=== PATIENT | male | born 1960 | race Caucasian/White ===

== ENCOUNTER 2021-04-18 18:30 | Inpatient (IN) | payer OTHER ==
[~2021-04-18] VITALS: Ht 182.9 cm; Wt 112.9 kg
[2021-04-18] VITALS (7 sets, daily range): BP systolic 136–149; BP diastolic 75–91
[2021-04-18] MEDS ORDERED: METHYLPHENIDATE10 M2 PO (18:41)
[2021-04-18] MEDS ORDERED: ESCITALOPRAM OX20 MG PO (18:41)
[2021-04-18 19:07] LABS: ABSOLUTE NEUTROPHILS 9.1 thou/uL (1.4-8.2); BASOPHILS 1.4 % (0.0-2.0); EOSINOPHILS 1.1 % (0.0-3.0); HEMATOCRIT 44.7 % (42.0-52.0); HEMOGLOBIN 15.6 gm/dL (14.0-18.0); LYMPHOCYTES 30.4 % (24.0-44.0); MCH 30.2 pg (26.0-34.0); MCV 86.4 fL (80.0-100.0); MONOCYTES 8.7 % (1.0-8.0); PLATELET COUNT 404 thou/uL (150-400); POLYS 58.4 % (36.0-66.0); RBC 5.18 mil/uL (4.50-6.00); WBC 15.6 thou/uL (4.0-11.0)
[2021-04-18 19:17] LABS: CALCIUM 9.5 mg/dL (8.5-10.1); CREATININE 1.4 mg/dL (0.7-1.3); POTASSIUM 4.1 mmol/L (3.5-5.1)
[2021-04-18 19:21] LABS: APTT 23.6 Seconds (24.5-32.8); PROTIME 10.9 Seconds (10.5-12.1)
[2021-04-18 19:27] LABS: TOTAL BILIRUBIN 0.4 mg/dL (0.2-1.0); TOTAL PROTEIN 7.2 g/dL (6.4-8.2)
--- NOTE | 2021-04-18 21:11 | CATHLAB ---
[facility] [place] [address] INVASIVE PROCEDURE REPORT Name: DAHLIA HIGGINS Room #: 170-13 ADM IN M.R.#: [id number] Admission: 04/18/21 Attend Phys: Almita Gonzales MD Discharge: Date of : 64 Report #: [id number] THIS REPORT FOR: cc: Rohit Welch MD, John H. MD Lundgren, Craig H. MD [facility] ~ APPROVED REPORT Study performed: 04/18/2021 19:15:34 Patient Details Patient Status: ED Room #: The patient is a 60 year-old male Event Personnel Dalton Underwood Crm Developer, Mindi Harris, Analy Momin RTR Scrub Bharati Navarrete RN, Jenniffer Cadena bar tacker sewing machine Performed Art Access - R femoral artery* Left Heart Cath w/or w/o Coronaries 9734019 [facility] JETHRO Revasc AMI Total/Sub Single LAD C[address] w/wo Plasty Single RAMUS Inter 019169 Hemostasis w/ Mynx 19595 Initial Mod Sed Same Phys/QHP Gr5y 402026 94538 Mod Sed Same Phys/QHP Ea 798814 Indication Chest pain Procedure Narrative The patient was brought emergently to the Cardiac Catheterization Laboratory and was prepped and draped in a sterile manner. The Right Groin^ was infiltrated with 1% Lidocaine subcutaneous anesthesia. A PINNACLE 6FR Sheath #[id number] sheath was inserted into the RFA^. Coronary angiography was performed using coronary diagnostic catheters. The right coronary system was accessed and visualized with a JR4 catheter. The left coronary system was accessed and visualized with a JL4 catheter. The left ventricle was accessed and visualized with a ANGLE PIG catheter. Left ventriculogram was performed in 30 degree projection. There was no hematoma. Intraoperative Conscious Sedation Sedation start time: 1924 Case end Time: 2019 [facility] [place] [address] INVASIVE PROCEDURE REPORT Name: DAHLIA HIGGINS Room #: 170-13 [facility] IN .R.#: [id number] Admission: 04/18/21 Attend Phys: Almita Gonzales, Discharge: Date of : 64 Report #: [id number] Fentanyl 200 mcg Versed 2 mg Fluoro Time: 8.55 minutes Dose: DAP 98885.90 cGycm2 2495 mGy Contrast Type and Amount: Visipaque 285 ml Coronary Angiography The patient's coronary anatomy is right dominant. Diagnostic Cath Left Main Normal left main LAD Occluded proximal LAD with ATIF 0 flow Circumflex Relatively small nondominant circumflex comprised of a distally arising marginal branch, angiographically normal OM1 Distal OM1, normal Right Coronary Mild proximal and mid vessel ectasia and plaquing R PDA Normal posterior descending RPLV Normal posterior lateral branch Ramus Large ramus branch with 85% proximal stenosis Left Ventriculography The left ventricle is normal in size with abnormal contractility. The left ventricular ejection fraction is estimated to be 40-45%. Left ventricular wall motion abnormalities are present. There is no mitral insufficiency. Anteroapical hypokinesis IVUS Intravascular Ultrasound was performed on the Ramus branch vessel. Fractional Flow [place] was performed on the 85 vessel. A 3 Guide Catheter was used to engage the LAUNCHER 6FR EBU 3.5 #[id number] ostium. A Left main Interventional Guidewire was used. A Luge Wire .014 x 182CM #[id number] was used. IVUS Findings TREK RX 2.5 X 12 #[id number] Hemodynamics The aortic pressure is 150/88 mmHg with a mean of 124 mmHg. The left ventricular pressure is 146/36 mmHg with a mean of mmHg. The left ventricular end diastolic pressure is 36 mmHg. There was no gradient across the aortic valve upon pullback. PCI Technique Lesion Anticoagulation was achieved with Heparin, Integrilin. Patient was preloaded with Effient. Percutaneous coronary intervention was performed on the Proximal LAD. The lesion stenosis prior to [facility] [address] [place] [address] INVASIVE PROCEDURE REPORT Name: DAHLIA HIGGINS Room #: 170-13 [facility] IN M.R.#: [id number] Admission: 04/18/21 Attend Phys: Almita Gonzales, Discharge: Date of : 64 Report #: [id number] intervention was 100% with ATIF 0 flow. A LAUNCHER 6FR EBU 3.5 #[id number] Guide Catheter was used to engage the Left main ostium. A Luge Wire .014 x 182CM #[id number] Interventional Guidewire was used to cross the lesion. BALLOON DILATION A Balloon catheter TREK RX 2.5 X 12 #[id number] was inserted and inflated up to 12.00atm for 20seconds. Additional Inflation: 13.00atm for 25seconds. STENT DEPLOYMENT A stent XIENCE CHASITY RX 4.0 X 15 #[id number] was inserted and inflated up to rene for seconds. POST STENT DEPLOYMENT BALLOON DILATION A Balloon catheter Euphora NC RX 4.0 x 12 #[id number] was inserted and inflated up to 20.00atm for 17seconds. Additional Inflation: 22.00atm for 32seconds. Final angiography reveals 0 % stenosis with ATIF 3 flow. PCI Technique Lesion Percutaneous coronary intervention was performed on the Ramus branch. The lesion stenosis prior to intervention was 85% with ATIF 3 flow. A LAUNCHER 6FR EBU 3.5 #796544 Guide Catheter was used to engage the Left main ostium. A Luge Wire .014 x 182CM #866471 Interventional Guidewire was used to cross the lesion. BALLOON DILATION A Balloon catheter TREK RX 2.5 X 12 #907036 was inserted and inflated up to 18.00atm for 29seconds. STENT DEPLOYMENT A stent RESOLUTE DALILA RX 3.0 X 15 #[id number] was inserted and inflated up to 16.00atm for 23seconds. POST STENT DEPLOYMENT BALLOON DILATION A Balloon catheter TREK NC RX 3.0 X 12 #[id number] was inserted and inflated up to 22.00atm for 29seconds. Additional Inflation: 22.00atm for 27seconds. Final angiography reveals 0 % stenosis with ATIF 3 flow. Conclusion 1. Moderate left ventricular dysfunction. EF 40-45%. [facility] [address] [place] [address] INVASIVE PROCEDURE REPORT Name: DAHLIA HIGGINS Room #: 170-13 ADM IN M.R.#: [id number] Admission: 04/18/21 Attend Phys: Almita Gonzales, Discharge: Date of : 64 Report #: [id number] hypokinesis 2. Normal left main 3. Occlusion of the proximal LAD, stented with a 4.0 x 15 mm Xience stent, post-dilated to 4.2mm. ATIF-3 flow restored 4. 85% proximal ramus branch stenosis, stented with a 3.0 x 15 mm Resolute stent 5. Normal, small, nondominant circumflex 6. Mild proximal and mid vessel plaquing and ectasia in a dominant right coronary Recommendations Cardiac Rehabilitation Referral Aggressive Medical Therapy <ELECTRONICALLY SIGNED> By: Dalton Underwood MD, [facility] 04/18/212110 10 10 Dalton Underwood MD, FACC /INF
[2021-04-19] VITALS (9 sets, daily range): BP systolic 131–152; BP diastolic 75–95
[2021-04-19 03:33] LABS: HEMATOCRIT 42.2 % (42.0-52.0); HEMOGLOBIN 14.3 gm/dL (14.0-18.0); MCH 29.4 pg (26.0-34.0); MCHC 33.8 g/dL (28.0-37.0); MCV 87.1 fL (80.0-100.0); RBC 4.85 mil/uL (4.50-6.00); RDW 12.8 % (10.5-14.5)
--- NOTE | 2021-04-19 03:38 | NUR ---
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 Patient presented with chest pain and upon arrival, he was taken to cath lb for stent placement. [address], right groin site access. Denies pain. Admission assessment and documentation completed. Bedrest for 3 hours. No sign of distress through the night. Vital signs stable. Continue to monitor. No further needs at this time.
[2021-04-19 04:11] LABS: CHOLESTEROL 208 mg/dL (<200); HDL CHOLESTEROL 33 mg/dL (>40); LDL CHOLESTEROL 137 mg/dL (<100); TC:HDL 6.3 Ratio (Not establshd); TRIGLYCERIDE 192 mg/dL (<150); VLDL 38 mg/dL (<40)
[2021-04-19 04:13] LABS: SERUM ASSESSMENT Clear
--- NOTE | 2021-04-19 12:58 | EKG ---
[place] [address] [facility] [employer] [place] [address] ELECTROCARDIOGRAM REPORT Name: DAHLIA HIGGINS Room #: 201- ADM IN M.R.#: [id number] Admission: 04/18/21 Attend Phys: Almita Gonzales MD Discharge: Date of : 64 Report #: [id number] [facility] ED Test Date: 2021-04-18 Test Time: 18:33:25 Pat Name: DAHLIA HIGGINS Department: Room: 201 Gender: M Employee Communications Manager: YASMEEN : 1960 Requested By: Dalton Underwood Order Number: [id number] MD: Dalton Underwood Measurements Intervals [place] Rate: 79 P: 55 UT: 142 QRS: 65 QRSD: 74 T: 11 QT: 369 QTc: 424 Interpretive Statements Sinus rhythm Anterolateral infarct, acute (LAD) Baseline wander in lead(s) II,III,aVF,V1,V2,V3,V4 No previous ECG available for comparison Electronically Signed On 04-19-2021 12:58:22 INSPECTOR SCREEN PRINTING by Dalton Underwood [email or web address] <ELECTRONICALLY SIGNED> By: Dalton Underwood MD, [facility] 04/19/21 1258 1833 1833 Dalton Underwood MD, [facility] /EPI
--- NOTE | 2021-04-19 13:03 | EKG ---
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: KELTON : 1960 Requested By: Dalton Underwood Order Number: [id number] MD: Dalton Underwood Measurements Intervals [place] Rate: 75 P: 24 WI: 141 QRS: 74 QRSD: 86 T: 48 QT: 387 QTc: 433 Interpretive Statements Sinus rhythm Probable anterolateral infarct, recent Compared to ECG 04/18/2021 18:33:[address] segment elevation is less prominent Electronically Signed On 04-19-2021 13:03:08 CUSTOMER LEADER by Dalton Underwood [email or web address] <ELECTRONICALLY SIGNED> By: Dalton Underwood MD, [facility] 04/19/21 1303 D: 01/947 7 Dalton Underwood MD, FACC /EPI
--- NOTE | 2021-04-19 19:30 | NUR ---
ASSUMED CARE OF PATIENT AT 0700. C/O NONCARDIAC CHEST PAIN, ALLEVIATED WITH HYDROCODONE X 1. SR ON MONITOR. DENIES ANY CARDIAC CP OR SOA. RT GROIN SITE CONTINUES TO BE FREE OF ANY SWELLING, DRAINAGE OR BRUISING. PATIENT'S AT BEDSIDE. PT RESTING COMFORTABLY IN BED WITH CALL LIGHT WITHIN REACH. WILL CONTINUE TO FOLLOW.
--- NOTE | 2021-04-20 03:26 | NUR ---
Assumed pt care at 1900. Pt is alert and oriented. No sign of distress noted in pt. Pt is stable. Right groin site intake. Pt continues to verbalize mild chest discomfort. Pain med administered. Assessment completed and documented. Scheduled meds administered to pt. CPAP on for sleep. No acute event during the night. Continue to monitor. No further needs at this time.
[2021-04-20 04:02] LABS: CALCIUM 8.5 mg/dL (8.5-10.1); CREATININE 1.3 mg/dL (0.7-1.3); POTASSIUM 4.5 mmol/L (3.5-5.1)
[2021-04-20 04:06] LABS: GLYCOHEMOGLOBIN (HGB A1C) 6.9 % (4.8-5.6)
[2021-04-20 04:16] VITALS: BP 141/82
[2021-04-20 07:10] VITALS: BP 125/64
[2021-04-20] MEDS ORDERED: CRESTOR40 MG PO (07:56)
[2021-04-20] MEDS ORDERED: EFFIENT10 MG PO (07:56)
[2021-04-20] MEDS ORDERED: LISINOPRIL20 MG PO (07:56)
[2021-04-20] MEDS ORDERED: ASPIRIN325 PO (07:56)
[2021-04-20] MEDS ORDERED: METOPROLOL SUCC50 MG PO (07:56)
[2021-04-20 10:44] VITALS: BP 125/64
[2021-04-20 11:05] VITALS: BP 125/75
--- NOTE | 2021-04-20 13:29 | NUR ---
CHART REVIEWED AND DISCUSSED WITH CARE TEAM. PT MEDICALLY STABLE TO [facility]. CM SPOKE TO NURSING STAFF REGARDING DISCHARGE MEDICATION EFFIENT. NO SAMPLES AVAILABLE FOR PT AND NO COUPONS AVAILABLE FOR PT. PT DOES NOT HAVE INSURANCE. NURSING STAFF SPOKE TO CARDIOLOGY PAPER [place] MACHINE OPERATOR WHO INIDICATED OFFICE DID NOT HAVE SAMPLES EITHER. WAS INFORMED PT WAS GETTING GENERIC AND AGREEABLE TO FILL MED AT [facility]. NO FURTHER CM INTERVENTIONS INDICATED AT THIS TIME.
--- NOTE | 2021-04-20 14:57 | 2DMMODE ---
[facility] [place] [address] 2 D/M-MODE ECHOCARDIOGRAM Name: DAHLIA HIGGINS Room #: 201-P [facility] IN M.R.#: [id number] Admission: 04/18/21 Attend Phys: Ricardo Winslow MD Discharge: 04/20/21 Date of : 64 Report #: [id number] THIS REPORT FOR: cc: Rohit Welch MD, John H. MD Lundgren, Craig H. MD [facility] ~ APPROVED REPORT Study performed: 04/20/2021 10:32:23 EXAM: Comprehensive 2D, Doppler, and color-flow Echocardiogram Patient Location: Bedside Room #: 201 Status: routine BSA: 2.34 HR: 71 bpm BP: 125/64 mmHg Rhythm: NSR Other Information Study Quality: Good Indications Chest Pain 2D Dimensions RVDd: 34.59 mm IVSd: 10.24 (7-11mm) LVOT Diam: 21.88 (18-24mm) LVDd: 43.96 mm PWd: 10.27 (7-11mm) Ascending Ao: 31.84 (22-36mm) LVDs: 31.95 (25-40mm) Left Atrium: 35.53 (27-40mm) Aortic Root: 31.96 mm IVC: 18.00 mm Volumes Left Atrial Volume (Systole) Single Plane 4CH: 38.02 mL Single Plane 2CH: 58.63 mL LA ESV Index: 23.00 mL/m2 Aortic Valve AoV Peak Tremaine.: 1.05 m/s AO Peak Gr.: 4.42 mmHg LVOT Max P.70 mmHg LVOT Max V: 0.96 m/s SAAD Vmax: 3.44 cm2 [facility] [address] [place] [address] 2 D/M-MODE ECHOCARDIOGRAM Name: DAHLIA HIGGINS Room #: 201-P [facility]#: [id number] Admission: 04/18/21 Attend Phys: Ricardo Winslow MD Discharge: 04/20/21 Date of : 64 Report #: [id number] AI Vmax: 3.79 m/s AI Bartholomew: 1.17 m/s2 AI PHT: 937.48 ms Mitral Valve E/A Ratio: 0.8 MV Decel. Time: 247.82 ms MV E Max Tremaine.: 0.54 m/s MV A Tremaine.: 0.67 m/s MV PHT: 68.10 ms IVRT: 147.64 ms Pulmonary Valve PV Peak Tremaine.: 0.90 m/s PV Peak Gr.: 3.27 mmHg Pulmonary Vein P Vein S: 0.43 m/s P Vein A: 0.28 m/s P Vein D: 0.32 m/s P Vein A Dur.: 96.9 msec P Vein S/D Ratio: 1.34 Left Ventricle The left ventricle is normal size. There is normal left ventricular wall thickness. Left ventricular ejection fraction is moderately decreased. LVEF is 40%. Mid to distal septal, anterior, and apical hypokinesis Mild diastolic dysfunction Right Ventricle The right ventricle is normal size. The right ventricular systolic function is normal. Atria The left atrium size is normal. The right atrium size is normal. Aortic Valve The aortic valve is normal in structure. Mild aortic regurgitation. There is no aortic valvular stenosis. Mitral Valve The mitral valve is normal in structure. Trace to mild mitral regurgitation. No evidence of mitral valve stenosis. Tricuspid Valve The tricuspid valve is normal in structure. There is no tricuspid valve regurgitation noted. [facility] [address] [place] [address] 2 D/M-MODE ECHOCARDIOGRAM Name: DAHLIA HIGGINS Room #: 201-P [facility] IN ..#: [id number] Admission: 04/18/21 Attend Phys: Ricardo Winslow MD Discharge: 04/20/21 Date of : 64 Report #: [id number] Pulmonic Valve The pulmonary valve is normal in structure. There is no pulmonic valvular regurgitation. Great Vessels The aortic root is normal in size. IVC is normal in size and collapses >50% with inspiration. Pericardium There is no pericardial effusion. <Conclusion> Left ventricular ejection fraction is moderately decreased. LVEF is 40%. Mid to distal septal, anterior, and apical hypokinesis Mild diastolic dysfunction The aortic valve is normal in structure. Mild aortic regurgitation, no stenosis. The mitral valve is normal in structure. Trace to mild mitral regurgitation. Pulmonary artery pressure could not be reliably ascertained There is no pericardial effusion. <ELECTRONICALLY SIGNED> By: Dalton Underwood MD, [facility] 04/20/21 145 145 145 Dalton Underwood MD, FACC /INF
--- NOTE | 2021-04-20 20:06 | NUR ---
PT IS AXOX4, PLEASANT; VSS, AFEBRILE, SR ON THE MONITOR WITH ST ELEVATION. PT D/C HOME WITH NO NEEDS. RX AND D/C FOLLOWUP APPT EDUCATION COMPLETED. PT AND COMMUNICATED UNDERSTANDING. PT D/C VIA PERSONAL VEHICLE WITH . NO CONCERNS AT THIS TIME
--- NOTE | 2021-04-21 08:00 | HC ---
[facility] [place] [address] CONSULTATION Name: DAHLIA HIGGINS Room #: 201-P [facility] IN M.R.#: [id number] Admission: 04/18/21 Attend Phys: Ricardo Winslow MD Discharge: 04/20/21 Date of : 64 Report #: [id number] THIS REPORT FOR: cc: Rohit Welch MD, John H. MD Lundgren, Craig H. MD [facility] ~ DATE OF SERVICE: 04/18/2021 REASON FOR CONSULTATION: Chest pain. HISTORY OF PRESENT ILLNESS: The patient is a 60-year-old with a fairly limited past medical history. About an hour ago, at 6:00 p.m., he developed midsternal chest pain with diaphoresis and shortness of breath. He presented to the Emergency Department at 1833 where an EKG demonstrated anterior injury pattern. A STEMI was called. He has ongoing pain despite treatment with aspirin, Plavix and heparin. No prior cardiac history. No heart failure symptoms including orthopnea or paroxysmal nocturnal dyspnea. He denies a history of palpitations, near syncope or syncope. ALLERGIES: No known drug allergies. MEDICATIONS: Include: Ritalin 30 mg daily, citalopram 20 mg daily. PAST MEDICAL HISTORY: His past history in medical records have been reviewed. No prior significant illnesses, hospitalizations, or surgeries. SOCIAL HISTORY: He is , nonsmoker, occasional drinker. 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 FAMILY HISTORY: Unremarkable for premature coronary disease. REVIEW OF SYSTEMS: All systems negative except as that noted above. PHYSICAL EXAMINATION: GENERAL: Reveals an anxious gentleman, who is diaphoretic, in moderate distress. VITAL SIGNS: Blood pressure is 140/80, heart rate is 76 and regular, 5 feet 11 inches tall, 249 pounds. LYMPHATICS: There are neither xanthelasma, subcutaneous xanthomata, oral mucosal or digital cyanosis or kyphoscoliosis present. CHEST: Clear to auscultation and percussion. CARDIAC: Regular rate and rhythm with normal S1, S2. Heart sounds are distant. ABDOMEN: Soft and nontender. [facility] [address] [place] [address] CONSULTATION Name: DAHLIA HIGGINS Room #: 201-P [facility] IN ..#: [id number] Admission: 04/18/21 Attend Phys: Ricardo Winslow MD Discharge: 04/20/21 Date of : 64 Report #: [id number] EXTREMITIES: Without cyanosis, clubbing or edema. Radial pulses are 2+. NEUROLOGIC: He is alert with a nonfocal exam. LABORATORY DATA: Electrolytes remain pending. Chest x-ray remains pending. EKG, sinus rhythm, anterolateral myocardial infarction. ASSESSMENT AND PLAN: 1. Acute anterolateral myocardial infarction. 2. Mild hypertension. 3. Dyslipidemia. RECOMMENDATIONS: Urgent coronary angiography. The angiographic procedure was discussed in detail including its associated risks. After a thorough discussion of the procedure, its risks and alternatives and after answering his questions, he is agreeable to proceeding. <ELECTRONICALLY SIGNED> By: Dalton Underwood MD, FACC 04/21/21 0800 1805 2106 Dalton Underwood MD, FACC /nt
--- NOTE | 2021-04-21 10:02 | EKG ---
[place] [address] [facility] [address] [place] [address] ELECTROCARDIOGRAM REPORT Name: DAHLIA HIGGINS Room #: 201-[facility] IN M.R.#: [id number] Admission: 04/18/21 Attend Phys: Ricardo Winslow MD Discharge: 04/20/21 Date of : 64 Report #: [id number] [facility] Test Date: 2021-04-20 Test Time: 07:37:31 Pat Name: DAHLIA HIGGINS Department: Room: 201 Gender: M Radiotelegraphist: ROB : 1960 Requested By: Dalton Underwood Order Number: [id number] MD: Dalton Underwood Measurements Intervals [place] Rate: 72 P: 56 [place]: 139 QRS: 78 QRSD: 86 T: 86 QT: 453 QTc: 496 Interpretive Statements Sinus rhythm Anterior infarct, recent Lateral leads are also involved Compared to ECG 04/19/2021 09:48:36 Evolutionary changes of an anterior lateral infarct Electronically Signed On 04-20-2021 8:02:42 MANAGER OF LEARNING by Dalton Underwood [email or web address] <ELECTRONICALLY SIGNED> By: Dalton Underwood MD, [facility] 01/801 6 6 Dalton Underwood MD, [facility] /EPI
== END 2021-04-20 13:52 | disposition home or self-care (01) | DRG 246 ==
LOC: ER 18:30 → EROBS 19:23 → 2N 19:23
PROVIDERS: Emergency Medicine; Internal Medicine; Nurse Practitioner Family; ADMIT Hospitalist; ATTEND Hospitalist
PROC: 4A033BC Measurement of Arterial Pressure, Coronary, Percutaneous Approach (ICD-10-PCS; principal; 2021-04-18)
PROC: 4A023N7 Measurement of Cardiac Sampling and Pressure, Left Heart, Percutaneous Approach (ICD-10-PCS; principal; 2021-04-18)
PROC: 027135Z Dilation of Coronary Artery, Two Arteries with Two Drug-eluting Intraluminal Devices, Percutaneous Approach (ICD-10-PCS; principal; 2021-04-18)
PROC: B215YZZ Fluoroscopy of Left Heart using Other Contrast (ICD-10-PCS; principal; 2021-04-18)
PROC: B211YZZ Fluoroscopy of Multiple Coronary Arteries using Other Contrast (ICD-10-PCS; principal; 2021-04-18)
PROC: B240ZZ3 Ultrasonography of Single Coronary Artery, Intravascular (ICD-10-PCS; principal; 2021-04-18)
PROC: 5A09357 Assistance with Respiratory Ventilation, Less than 24 Consecutive Hours, Continuous Positive Airway Pressure (ICD-10-PCS; 2021-04-19)
PROC: 5A09357 Assistance with Respiratory Ventilation, Less than 24 Consecutive Hours, Continuous Positive Airway Pressure (ICD-10-PCS; 2021-04-20)
DX: I21.09 ST elevation (STEMI) myocardial infarction involving other coronary artery of anterior wall (principal); I50.21 Acute systolic (congestive) heart failure; N17.9 Acute kidney failure, unspecified; I47.2 Ventricular tachycardia; I47.1 Supraventricular tachycardia; E66.9 Obesity, unspecified; E78.5 Hyperlipidemia, unspecified; I11.0 Hypertensive heart disease with heart failure; F41.9 Anxiety disorder, unspecified; F90.9 Attention-deficit hyperactivity disorder, unspecified type; F32.A Depression, unspecified; R73.9 Hyperglycemia, unspecified; G47.33 Obstructive sleep apnea (adult) (pediatric); Z20.822 Contact with and (suspected) exposure to COVID-19; Z79.899 Other long term (current) drug therapy; Z68.33 Body mass index [BMI] 33.0-33.9, adult; Z99.81 Dependence on supplemental oxygen; Z83.3 Family history of diabetes mellitus; Z82.49 Family history of ischemic heart disease and other diseases of the circulatory system
CPT/HCPCS: 10081